=== PATIENT | female | born 1955 | race Caucasian/White ===

== ENCOUNTER 2018-08-17 08:32 | Inpatient (IN) | payer BC | END 2018-08-19 15:30 | disposition home health service (06) | LOC: FM/S 08:32 ==

== ENCOUNTER 2023-10-19 12:32 | Inpatient (IN) | payer BC, OTHER ==
[2023-10-19] MEDS ORDERED: METOPROLOL TARTRATE 5 MG/5 ML VIAL ONE (14:12)
[2023-10-19] MEDS: METOPROLOL TARTRATE 5 MG/5 ML VIAL IVPUSH ONE (14:15)
[2023-10-19 14:33] LABS: BASO % 1.2 % (0-2.0); HEMATOCRIT 38.4 % (32.4-45.2); HEMOGLOBIN 12.7 GM/dL (10.7-15.3); LYMPH % 34.2 % (8-40); MCH 30.1 pg (25.7-33.7); MCHC 33.2 g/dl (32.0-36.0); MEAN CELL VOLUME 90.6 fl (80-96); MEAN PLT VOLUME 8.6 fl (7.5-11.1); MONO % 4.6 % (3.8-10.2); PLATELET COUNT 218 10^3/uL (134-434); RBC 4.24 M/mm3 (3.60-5.2); WHITE BLOOD COUNT 7.4 K/mm3 (4.0-10.0)
[2023-10-19] MEDS ORDERED: dilTIAZem HCL 125 MG/25 ML - 25 ML VIAL ONE ×2 (14:37→16:18)
[2023-10-19 14:43] LABS: INR 1.4 (0.83-1.09); PROTHROMBIN TIME (PATIENT) 15.9 SEC (9.7-13.0)
[2023-10-19] MEDS: dilTIAZem HCL 50 MG/10 ML - 10 ML VIAL IVPUSH ONE ×2 (14:44→16:45)
[2023-10-19] MEDS: SODIUM CHLORIDE 0.9% 500 ML INFUS.BAG IV ONE (14:44)
[2023-10-19 14:45] LABS: ACTIVATED PTT 68.2 SECONDS (25.2-36.5)
[2023-10-19 14:49] LABS: POTASSIUM 3.6 mmol/L (3.5-5.1)
[2023-10-19 14:51] LABS: CALCIUM 8.7 mg/dL (8.5-10.1)
[2023-10-19 14:52] LABS: ALBUMIN 3.3 g/dl (3.4-5.0); BLOOD UREA NITROGEN 30.6 mg/dL (7-18); MAGNESIUM 2.1 mg/dL (1.8-2.4)
[2023-10-19 14:55] LABS: CREATININE 1.6 mg/dL (0.55-1.3)
[2023-10-19 14:56] LABS: BILIRUBIN,TOTAL 0.9 mg/dL (0.2-1)
[2023-10-19 14:57] LABS: TOT PROT 7.1 g/dl (6.4-8.2)
[2023-10-19 15:00] LABS: N-TERMINAL BNP 10432.6 pg/ml (5-125)
[2023-10-19] MEDS ORDERED: dilTIAZem HCL 30 MG TABLET ONE (15:04)
[2023-10-19] MEDS ORDERED: POTASSIUM CHLORIDE TABS 20 MEQ TABLET.ER (FP) PO ONE (15:04)
[2023-10-19] MEDS: POTASSIUM CHLORIDE TABS 20 MEQ TABLET.ER (FP) PO ONE (15:19)
[2023-10-19] MEDS: dilTIAZem HCL 30 MG TABLET PO ONE ×2 (16:04→18:14)
[2023-10-19] MEDS ORDERED: dilTIAZem HCL 50 MG/10 ML - 10 ML VIAL ONE ×2 (16:18→16:46)
[2023-10-19] MEDS: dilTIAZem HCL 30 MG TABLET PO SCH (18:53)
[2023-10-19] MEDS ORDERED: DIGOXIN 0.5 MG/2 ML AMPUL ONE (20:38)
[2023-10-19] MEDS: DIGOXIN 0.5 MG/2 ML AMPUL IVPUSH ONE (21:09)
[2023-10-19] MEDS ORDERED: MUPIROCIN 2% TOPICAL OINTMENT FOR DECOLONIZATION NS SCH (22:00)
[2023-10-19] MEDS ORDERED: HEPARIN NA (PORCINE) 5,000 UNITS/ML 1ML VIAL SQ SCH (22:00)
[2023-10-19] MEDS ORDERED: CHLORHEXIDINE GLUCONATE 4% CLEANSER FOR DECOLONIZATION TP SCH (22:00)
[2023-10-19] MEDS ORDERED: METOPROLOL TARTRATE 50 MG TABLET (FP) ONE (23:49)
[2023-10-20] MEDS: INSULIN ASPART SLIDING SCALE (NOVOLOG) 1 VIAL SQ SCH (00:06)
[2023-10-20] MEDS: METOPROLOL TARTRATE 50 MG TABLET (FP) PO SCH (00:09)
[2023-10-20] MEDS: DABIGATRAN ETEXILATE MESYLATE 150 MG CAPSULE PO SCH (00:30)
[2023-10-20 02:18] VITALS: BMI 33.6
[2023-10-20] MEDS: DIGOXIN 0.5 MG/2 ML AMPUL IVPUSH ONE ×2 (03:06→09:07)
[2023-10-20 07:06] LABS: EOS % 2.9 % (0-4.5); HEMATOCRIT 37.1 % (32.4-45.2); HEMOGLOBIN 12.2 GM/dL (10.7-15.3); LYMPH % 39.5 % (8-40); MCH 29.7 pg (25.7-33.7); MEAN CELL VOLUME 90.2 fl (80-96); MEAN PLT VOLUME 9.3 fl (7.5-11.1); MONO % 4.8 % (3.8-10.2); NEUT % 51.8 % (42.8-82.8); PLATELET COUNT 182 10^3/uL (134-434); RBC 4.12 M/mm3 (3.60-5.2); RDW 15.2 % (11.6-15.6); WHITE BLOOD COUNT 5.5 K/mm3 (4.0-10.0)
[2023-10-20] MEDS ORDERED: LOSARTAN POTASSIUM 25 MG TABLET PO SCH (10:00)
[2023-10-20] MEDS: FUROSEMIDE 40 MG/4 ML INJECTABLE VIAL IVPUSH SCH (11:06)
[2023-10-20] MEDS: PANTOPRAZOLE 20 MG TABLET PO SCH (11:06)
[2023-10-20 12:36] LABS: POTASSIUM 4.4 mmol/L (3.5-5.1)
[2023-10-20 12:39] LABS: CALCIUM 8.9 mg/dL (8.5-10.1)
[2023-10-20 12:40] LABS: ALBUMIN 3.2 g/dl (3.4-5.0); BLOOD UREA NITROGEN 26.8 mg/dL (7-18)
[2023-10-20 12:43] LABS: CREATININE 1.4 mg/dL (0.55-1.3)
[2023-10-20 12:44] LABS: BILIRUBIN,TOTAL 1.1 mg/dL (0.2-1); TOT PROT 6.7 g/dl (6.4-8.2)
[2023-10-20] MEDS: ROSUVASTATIN CA 20 MG TABLET PO SCH (22:09)
[2023-10-21 07:18] LABS: MCH 30.2 pg (25.7-33.7); MCHC 33.2 g/dl (32.0-36.0); MEAN CELL VOLUME 90.7 fl (80-96); MEAN PLT VOLUME 8.9 fl (7.5-11.1); PLATELET COUNT 240 10^3/uL (134-434); RBC 4.63 M/mm3 (3.60-5.2); RDW 15.1 % (11.6-15.6)
[2023-10-21 08:04] LABS: CHLORIDE 109 mmol/L (98-107); POTASSIUM 4.2 mmol/L (3.5-5.1); SODIUM 142 mmol/L (136-145)
[2023-10-21 08:06] LABS: CALCIUM 8.8 mg/dL (8.5-10.1)
[2023-10-21 08:07] LABS: ANION GAP 13 mmol/L (4-13); BLOOD UREA NITROGEN 27.8 mg/dL (7-18); CO2 19 mmol/L (21-32); GLUCOSE,RANDOM 141 mg/dL (74-106)
[2023-10-21 08:10] LABS: CREATININE 1.6 mg/dL (0.55-1.3)
[2023-10-21] MEDS ORDERED: dilTIAZem HCL 25 MG/5 ML - 5 ML VIAL IVPUSH ONE (08:45)
[2023-10-21] MEDS: dilTIAZem HCL 50 MG/10 ML - 10 ML VIAL IVPUSH ONE (08:51)
[2023-10-21] MEDS: FUROSEMIDE 40 MG TABLET (FP) PO SCH (09:30)
[2023-10-21] MEDS: DIGOXIN 0.5 MG/2 ML AMPUL IVPUSH ONE (13:41)
[2023-10-21 15:08] LABS: INR 1.54 (0.83-1.09); PROTHROMBIN TIME (PATIENT) 17.5 SEC (9.7-13.0)
[2023-10-21] MEDS: METOPROLOL TARTRATE 50 MG TABLET (FP) PO SCH (15:15)
[2023-10-21] MEDS: DIGOXIN 0.25 MG TABLET PO ONE (18:34)
[2023-10-21] MEDS: WARFARIN NA 5 MG TABLET PO SCH (18:34)
[2023-10-22 07:41] LABS: HEMATOCRIT 42.3 % (32.4-45.2); HEMOGLOBIN 14.1 GM/dL (10.7-15.3); MCH 29.9 pg (25.7-33.7); MCHC 33.3 g/dl (32.0-36.0); MEAN CELL VOLUME 89.9 fl (80-96); MEAN PLT VOLUME 9.1 fl (7.5-11.1); PLATELET COUNT 222 10^3/uL (134-434); RBC 4.71 M/mm3 (3.60-5.2); RDW 14.7 % (11.6-15.6); WHITE BLOOD COUNT 6.7 K/mm3 (4.0-10.0)
[2023-10-22 07:51] LABS: POTASSIUM 3.9 mmol/L (3.5-5.1)
[2023-10-22 08:03] LABS: CALCIUM 8.9 mg/dL (8.5-10.1)
[2023-10-22 08:04] LABS: BLOOD UREA NITROGEN 29.9 mg/dL (7-18); MAGNESIUM 1.9 mg/dL (1.8-2.4)
[2023-10-22 08:07] LABS: CREATININE 1.5 mg/dL (0.55-1.3)
[2023-10-22 08:08] LABS: PHOSPHOROUS 4.4 mg/dL (2.5-4.9)
[2023-10-22] MEDS: DIGOXIN 0.125 MG TABLET PO SCH (10:06)
[2023-10-22 13:45] LABS: INR 1.25 (0.83-1.09)
[2023-10-22] MEDS ORDERED: ENOXAPARIN NA (PORCINE) 40 MG/0.4 ML DISP.SYRIN SQ ONE (15:35)
[2023-10-22] MEDS: ENOXAPARIN NA (PORCINE) 100 MG/1 ML DISP.SYRIN SQ ONE (16:54)
[2023-10-22] MEDS: ENOXAPARIN NA (PORCINE) 100 MG/1 ML DISP.SYRIN SQ SCH (21:36)
[2023-10-23 08:50] LABS: HEMATOCRIT 42.5 % (32.4-45.2); MCH 29.7 pg (25.7-33.7); MEAN CELL VOLUME 89.9 fl (80-96); MEAN PLT VOLUME 9.5 fl (7.5-11.1); PLATELET COUNT 219 10^3/uL (134-434); RBC 4.72 M/mm3 (3.60-5.2); RDW 14.7 % (11.6-15.6); WHITE BLOOD COUNT 6.4 K/mm3 (4.0-10.0)
[2023-10-23 09:32] LABS: CALCIUM 9.4 mg/dL (8.5-10.1); CREATININE 1.4 mg/dL (0.55-1.3); MAGNESIUM 2.2 mg/dL (1.8-2.4); PHOSPHOROUS 4.5 mg/dL (2.5-4.9); POTASSIUM 4.1 mmol/L (3.5-5.1)
[2023-10-23 11:48] LABS: INR 1.44 (0.83-1.09); PROTHROMBIN TIME (PATIENT) 16.4 SEC (9.7-13.0)
[2023-10-23] MEDS: dilTIAZem HCL 30 MG TABLET PO SCH (14:17)
[2023-10-23] MEDS: METOPROLOL TARTRATE 25 MG TABLET (FP) PO SCH (21:26)
[2023-10-24] MEDS: dilTIAZem HCL 60 MG TABLET PO SCH (00:17)
[2023-10-24 06:43] LABS: HEMATOCRIT 40.9 % (32.4-45.2); HEMOGLOBIN 13.3 GM/dL (10.7-15.3); MCH 29.3 pg (25.7-33.7); MCHC 32.6 g/dl (32.0-36.0); MEAN CELL VOLUME 89.9 fl (80-96); MEAN PLT VOLUME 8.6 fl (7.5-11.1); PLATELET COUNT 208 10^3/uL (134-434); RBC 4.55 M/mm3 (3.60-5.2); RDW 14.8 % (11.6-15.6); WHITE BLOOD COUNT 5.7 K/mm3 (4.0-10.0)
[2023-10-24 07:12] LABS: INR 2.23 (0.83-1.09); PROTHROMBIN TIME (PATIENT) 25.1 SEC (9.7-13.0)
[2023-10-24 08:20] LABS: BLOOD UREA NITROGEN 33.8 mg/dL (7-18); CALCIUM 9.4 mg/dL (8.5-10.1); MAGNESIUM 2.1 mg/dL (1.8-2.4); POTASSIUM 4.3 mmol/L (3.5-5.1)
[2023-10-24 08:26] LABS: CREATININE 1.7 mg/dL (0.55-1.3); PHOSPHOROUS 4.6 mg/dL (2.5-4.9)
[2023-10-25 07:43] LABS: INR 3.13 (0.83-1.09); PROTHROMBIN TIME (PATIENT) 34.2 SEC (9.7-13.0)
[2023-10-25 07:44] LABS: BASO % 0.8 % (0-2.0); EOS % 3.3 % (0-4.5); HEMATOCRIT 38.5 % (32.4-45.2); HEMOGLOBIN 12.7 GM/dL (10.7-15.3); LYMPH % 37.8 % (8-40); MCH 29.6 pg (25.7-33.7); MCHC 32.9 g/dl (32.0-36.0); MEAN CELL VOLUME 89.9 fl (80-96); MEAN PLT VOLUME 9.4 fl (7.5-11.1); MONO % 6.8 % (3.8-10.2); NEUT % 51.3 % (42.8-82.8); PLATELET COUNT 207 10^3/uL (134-434); RBC 4.29 M/mm3 (3.60-5.2); RDW 14.8 % (11.6-15.6); WHITE BLOOD COUNT 5.7 K/mm3 (4.0-10.0)
[2023-10-25 08:02] LABS: POTASSIUM 4.2 mmol/L (3.5-5.1)
[2023-10-25 08:05] LABS: CALCIUM 8.7 mg/dL (8.5-10.1)
[2023-10-25 08:06] LABS: MAGNESIUM 1.8 mg/dL (1.8-2.4)
[2023-10-25 08:09] LABS: CREATININE 1.5 mg/dL (0.55-1.3)
[2023-10-25 08:10] LABS: BILIRUBIN,TOTAL 0.8 mg/dL (0.2-1); TOT PROT 6.3 g/dl (6.4-8.2)
[2023-10-26] MEDS: dilTIAZem HCL 30 MG TABLET PO SCH (00:06)
[2023-10-26 07:07] LABS: EOS % 2.9 % (0-4.5); HEMATOCRIT 39.9 % (32.4-45.2); HEMOGLOBIN 13.3 GM/dL (10.7-15.3); MCH 29.8 pg (25.7-33.7); MCHC 33.3 g/dl (32.0-36.0); MEAN CELL VOLUME 89.4 fl (80-96); MONO % 6.1 % (3.8-10.2); PLATELET COUNT 194 10^3/uL (134-434); RBC 4.46 M/mm3 (3.60-5.2); RDW 14.9 % (11.6-15.6)
[2023-10-26 07:15] LABS: PROTHROMBIN TIME (PATIENT) 49.9 SEC (9.7-13.0)
[2023-10-26 07:30] LABS: POTASSIUM 4.4 mmol/L (3.5-5.1)
[2023-10-26 07:33] LABS: ALBUMIN 3.2 g/dl (3.4-5.0); CALCIUM 9.3 mg/dL (8.5-10.1)
[2023-10-26 07:34] LABS: BLOOD UREA NITROGEN 29.5 mg/dL (7-18); MAGNESIUM 1.9 mg/dL (1.8-2.4)
[2023-10-26 07:37] LABS: CREATININE 1.4 mg/dL (0.55-1.3); PHOSPHOROUS 4.1 mg/dL (2.5-4.9)
[2023-10-26 07:38] LABS: BILIRUBIN,TOTAL 0.8 mg/dL (0.2-1); TOT PROT 6.7 g/dl (6.4-8.2)
[2023-10-26 07:52] LABS: INR 4.53 (0.83-1.09)
[2023-10-26 13:21] VITALS: RESP 18
[2023-10-26 14:19] VITALS: BP 113/65; PULSE 86; TEMP 98.1
[2023-10-26] MEDS: WARFARIN NA 1 MG TABLET PO SCH (17:07)
[2023-10-26] MEDS ORDERED: WARFARIN NA 2 MG TABLET PO SCH (18:00)
[2023-10-26] MEDS ORDERED: METOPROLOL TARTRATE 25 MG TABLET (FP) PO SCH (22:00)
== END 2023-10-26 17:49 | disposition home or self-care (01) | DRG 308 ==
LOC: JER 12:32 → JERBED 15:51 → J4W 10-20 01:33
PROVIDERS: ADMIT Internal Medicine; ATTEND Internal Medicine
DX: I48.91 Unspecified atrial fibrillation (principal); I50.33 Acute on chronic diastolic (congestive) heart failure; I13.0 Hypertensive heart and chronic kidney disease with heart failure and stage 1 through stage 4 chronic kidney disease, or unspecified chronic kidney disease; N17.9 Acute kidney failure, unspecified; I24.89 Other forms of acute ischemic heart disease; E11.22 Type 2 diabetes mellitus with diabetic chronic kidney disease; E78.5 Hyperlipidemia, unspecified; N18.9 Chronic kidney disease, unspecified; I48.0 Paroxysmal atrial fibrillation; I05.0 Rheumatic mitral stenosis
CPT/HCPCS: 36415; 71045-TC-FY; 80048; 80053; 80162; 82962; 83036; 83605; 83735; 83880; 84100; 84443; 84484; 85025; 85027; 85610; 85730; 86850; 86900; 86901; 93005; 93010; 93306-TC; 97116-GP; 97161-GP; 99291